=== PATIENT | male | born 1995 | race Caucasian/White ===

== ENCOUNTER 2019-02-07 13:34 | Emergency (ER) | payer BC ==
--- NOTE | 2019-02-07 14:04 | NUR ---
not in lobby
--- NOTE | 2019-02-07 14:14 | NUR ---
Not in lobby. According to people in the lobby the patient signed in and immediately left
== END 2019-02-07 14:16 | disposition left against medical advice (07) ==
LOC: ER 13:35
DX: M79.646 Pain in unspecified finger(s) (principal); Z53.21 Procedure and treatment not carried out due to patient leaving prior to being seen by health care provider

== ENCOUNTER 2021-04-27 21:44 | Emergency (ER) | payer SELFPAY ==
[~2021-04-27] VITALS: Ht 177.8 cm; Wt 61.4 kg
[2021-04-27 22:18] VITALS: BP 124/99
--- NOTE | 2021-04-27 23:03 | NUR ---
PATIENT IS SITTING OUTSIDE THE ER LOBBY DOOR, HUDDLED WITH GIRLFRIEND. PATIENT IS DROWSY, APPEARS TO BE SLEEPING. HR 91, O2 SAT 97% ON ROOM AIR.
== END 2021-04-28 02:32 | disposition left against medical advice (07) ==
LOC: ER 21:45
DX: R00.0 Tachycardia, unspecified (principal); Z53.21 Procedure and treatment not carried out due to patient leaving prior to being seen by health care provider
CPT/HCPCS: 93005